=== PATIENT | male | born 2005 | race Caucasian/White ===

== ENCOUNTER 2023-06-18 10:03 | Emergency (ER) | payer OTHER ==
[2023-06-18] MEDS ORDERED: Lidocaine 1% 5 ML VIAL INJECT STA (10:32)
[2023-06-18] MEDS ORDERED: Diphtheria,Pertussis(Acell),Tetanus Vaccine 0.5 ML Syringe IM ONE (10:32)
[2023-06-18] MEDS ORDERED: Acetaminophen 500 MG Tab PO STA (10:33)
[2023-06-18] MEDS ORDERED: Ibuprofen 800 MG Tab PO STA (10:33)
[2023-06-18] MEDS ORDERED: Ondansetron 4 MG Tab.DIS PO STA (10:39)
[2023-06-18] MEDS ORDERED: oxyCODONE 5 MG Tab PO STA (10:42)
[2023-06-18] MEDS ORDERED: Sodium Chloride 0.9% 2.5 ML Syringe FLUSH PRN (10:58)
[2023-06-18] MEDS ORDERED: cefTRIAXone 1 GM in Sodium Chloride 0.9% 50 ML IV STA (10:58)
[2023-06-18] MEDS ORDERED: Sodium Chloride 0.9% 10 ML Syringe FLUSH PRN (10:58)
== END 2023-06-18 12:32 | disposition home or self-care (01) ==
LOC: MW.ED 10:03
DX: S62.636B Displaced fracture of distal phalanx of right little finger, initial encounter for open fracture (principal); Z23 Encounter for immunization; W23.0XXA Caught, crushed, jammed, or pinched between moving objects, initial encounter
CPT/HCPCS: 12001; 73130; 90471; 90715; 96365; 99283; A9270; J0696; J3490